=== PATIENT | male | born 1965 | race African-American/Black ===

== ENCOUNTER 2016-07-30 09:04 | Outpatient (CLI) | payer BC ==
[2016-07-30 13:39] LABS: Cardiac Risk 4.4 (Less than 4.5)
== END 2016-07-30 09:05 | disposition home or self-care (01) ==
LOC: NAVSJIPCSP 09:04
PROVIDERS: ATTEND Internal Medicine
DX: E78.5 Hyperlipidemia, unspecified (principal)
CPT/HCPCS: 36415; 80061

== ENCOUNTER 2016-11-25 08:40 | Outpatient (CLI) | payer BC ==
[2016-11-25 12:48] LABS: Cardiac Risk 4.6 (Less than 4.5)
== END 2016-11-25 08:41 | disposition home or self-care (01) ==
LOC: NAVSJIPCSP 08:40
PROVIDERS: ATTEND Internal Medicine
DX: E78.5 Hyperlipidemia, unspecified (principal)
CPT/HCPCS: 36415; 80061

== ENCOUNTER 2017-06-15 13:14 | Outpatient (CLI) | payer BC, OTHER ==
--- NOTE | 2017-06-15 19:51 | RAD ---
THREE VIEWS LUMBAR SPINE: Date: 06-15-17 History: Low back pain with pain radiating to left hip. Symptoms have been present for 8 months. Comparison: None available. FINDINGS: Vertebral body heights are within normal limits. No fracture or subluxation is seen. A few scattered minimal osteophytes are seen involving the lumbar spine. IMPRESSION: Minimal degenerative change of the lumbar spine but no fracture or subluxation is seen. POS: PANKAJ
== END 2017-06-15 13:15 | disposition home or self-care (01) ==
LOC: NAV RAD 13:14
PROVIDERS: ATTEND Internal Medicine
DX: M54.5 Low back pain (principal); G89.29 Other chronic pain; M47.896 Other spondylosis, lumbar region; I11.9 Hypertensive heart disease without heart failure; R10.9 Unspecified abdominal pain
CPT/HCPCS: 72100

== ENCOUNTER 2019-08-15 15:01 | Emergency (ER) | payer OTHER | END 2019-08-15 15:36 | disposition home or self-care (01) | LOC: NAV ERS 15:01 | DX: S39.012A Strain of muscle, fascia and tendon of lower back, initial encounter (principal); E78.5 Hyperlipidemia, unspecified; E78.00 Pure hypercholesterolemia, unspecified; I10 Essential (primary) hypertension; Z79.899 Other long term (current) drug therapy; X58.XXXA Exposure to other specified factors, initial encounter | CPT/HCPCS: 99283 ==

== ENCOUNTER 2020-06-27 16:34 | Outpatient (CLI) | payer OTHER | END 2020-06-27 16:35 | disposition home or self-care (01) | LOC: NAV RAD 16:34 | PROVIDERS: ATTEND Internal Medicine | DX: M25.552 Pain in left hip (principal); M16.12 Unilateral primary osteoarthritis, left hip ==